=== PATIENT | male | born 1980 | race Caucasian/White ===

== ENCOUNTER 2016-11-17 22:25 | Emergency (ER) | payer OTHER ==
--- NOTE | ~2016-11-17 | CR72 ---
[facility] A Service of [facility] & [facility] RADIOLOGY TEXT RESULTS PATIENT: CARLOS MARTINI JR LOCATION: [facility] : 78 UNIT #: [id number] AGE: [address]: Enoch Fonseca MD SEX: M ORDER DR: [id number] [facility] [address] [place], [place] [address] [id number] E MR#: [id number] #: [id number] NAME: CARLOS MARTINI JR : 1980 SEX: M STUDY DATE/TIME: 11/17/2016 21:56 UNIT: [facility] ROOM: STUDY DESCRIPTION: CR Chest Single View Portable Attending Physician: Ye Fonseca M.D. Ordering Physician: Ye Fonseca M.D. Primary Care Physician: aLmont [place] Jr., A.P.R.N. MEDICAL IMAGING REPORT This report is preliminary unless electronic signature is present EXAM Portable chest HISTORY Right-side chest pain for 1 week. No injury. FINDINGS A single AP portable view of the chest shows both lungs to be clear. The heart is normal in size. The mediastinal contour is normal. No significant bone abnormalities are seen. IMPRESSION Normal portable chest. Dictated by... Yuniel Bhakta M.D. THIS IS AN ELECTRONICALLY VERIFIED REPORT Yuniel Bhakta M.D. at 11/18/2016 3:17 PM BERENICE/saige TD: 11/18/2016 08:43 JOB #: [id number] MEDICAL IMAGING REPORT COPY
--- NOTE | ~2016-11-17 | EKG ---
PATIENT: CARLOS MARTINI UNIT #: [id number] Ventricular Rate: 113 BPM Atrial Rate: 113 BPM P-R Interval: 144 ms QRS Duration: 80 ms Q-T Interval: 332 ms QTC Calculation(Bezet): 455 ms P [place]: 55 degrees Calculated R [place]: 25 degrees Calculated T [place]: 44 degrees Diagnosis Line: Sinus tachycardia Diagnosis Line: Otherwise normal ECG Diagnosis Line: When compared with ECG of 08-NOV-2016 23:51, Diagnosis Line: Nonspecific T wave abnormality no longer evident Diagnosis Line: in Lateral leads Diagnosis Line: Confirmed by RICHARD ESCOTO MD ([id number]) on Diagnosis Line: 11/19/2016 11:44:32 AM INTERPRETING MD: VINICIUS
[2016-11-17 22:19] LABS: BASOPHIL# 0.1 X10e3 (0-0.3); BASOPHIL% 0.8 % (0-2.5); EOSINOPHIL# 0.2 X10e3 (0-0.7); EOSINOPHIL% 0.9 % (0.0-7.0); HEMATOCRIT 42.7 % (38.0-50.0); HEMOGLOBIN 14.2 gm/dL (13.0-16.0); LYMPHOCYTE# 3.7 X10e3 (1.0-3.5); MEAN CELL VOLUME 90.3 FL (83-96); MEAN CORPUSCULAR HGB CONC 33.3 g/dL (30-36); MEAN PLATELET VOLUME 6.7 FL (6.5-11.5); MONOCYTE# 1.1 X10e3 (0-1.0); MONOCYTE% 6.4 % (3.0-12.0); NEUTROPHIL# 12.4 X10e3 (1.5-7.1); NEUTROPHIL% 70.9 % (40-75); PLATELET COUNT 427 X10e3 (140-420); RED BLOOD COUNT 4.73 X10e (3.90-5.60); RED CELL DISTRIBUTION WIDTH 14.2 % (11.0-15.5); WHITE BLOOD COUNT 17.5 X10e3 (4.0-10.5)
[2016-11-17 22:20] LABS: DIFF IND YES
[2016-11-17 22:24] LABS: POC - CKMB <1.0 ng/mL (0.0-7.9); POC - TROPONIN <0.05 ng/mL (<=0.05)
[~2016-11-17 22:25] MED LIST: ADVAIR; ADVAIR 1001 DISK W/D PO; ADVAIR INH; ALBUTEROL MININEB NEB; ALBUTEROL0.83 MG/ML INH; ALBUTEROL17 G2; ALBUTEROL17 GM; ALBUTEROL17 GM INH; ALBUTEROL20 ml INH; ALLEGRA PO; AMOXICILLIN PO; BACTRIM DS TABL1 TA1 PO; BACTRIM DS TABL1 TAB PO; BENTYL10 M1 PO; CIPROFLOXACIN2.5 ML; CLARITIN10 M2 PO; CLEOCIN; CLEOCIN150 M2 PO; CLEOCIN150 MG PO; CORTISPORI10 ML OTIC AD; DOXYCYCLINE HY100 M3 PO; FISH OIL 1,0001 CAP PO; FLEXERIL10 MG PO; GUAIFENESIN600 MG PO; IBUPROFEN800 MG PO; KEFLEX PO; KEFLEX500 M1 PO; KEFLEX500 MG PO; LEVAQUIN; LEVAQUIN750 MG PO; LIPITOR PO; LISINOPRIL; LISINOPRIL PO; LISINOPRIL20 MG PO; LORCET HD CAPSU1 CA1 PO; LORTAB 101 TAB 10/5 PO; LORTAB 5/500 TA1 TA1 PO; LORTAB 7.5-5001 TAB PO; MEDROL PO; METHOCARBAMOL500 MG PO; MOBIC PO; NAPROXEN PO; NEURONTIN800 MG PO; NO MEDICATIONS; NORCO 5/325 TAB1 TAB PO; NORCO1 TAB 10/3 PO; NYSTATIN5 ML PO; OMEPRAZOLE10 M1 PO; OMEPRAZOLE20 M2 PO; PERCOCET PO; PHENERGAN SUPP25 M1 PR; PREDNISONE PO; PREDNISONE10 MG/DOSE PO; PRILOSEC20 M1 PO; PYRIDIUM PO; SUBOXONE 8 MG-1 EAC1 SL; TYLOX 5/500 CAP1 CAP PO; ULTRAM PO; VIBRAMYCIN100 M1 PO; VICODIN 5/1 TAB 5/50 PO; VICODIN 5/500 T1 TAB PO; VISTARIL50 MG PO; ZITHROMAX PO; ZYRTEC10 M1; [UNRECOGNIZED DRUG - OTHER]
[2016-11-17 22:32] LABS: ANISOCYTOSIS SL; PLATELET ESTIMATE INCREASED (NORMAL)
[2016-11-17 22:41] LABS: ALBUMIN SERUM 4.2 g/dL (3.5-5.0); ALKALINE PHOSPHATASE 71 U/L (32-92); ALT (SGPT) 33 U/L (10-40); AST (SGOT) 18 U/L (10-42); BILIRUBIN, DIRECT 0.1 mg/dL (0.0-0.2); BILIRUBIN,INDIRECT 0.5 mg/dL (0.0-0.9); BILIRUBIN,TOTAL 0.6 mg/dL (0.2-2.0); BLOOD UREA NITROGEN 16 mg/dL (9-23); BUN/CREATININE RATIO 17.77; CALCIUM SERUM 8.8 mg/dL (8.4-10.2); CARBON DIOXIDE 25 mmol/L (22-31); CHLORIDE 98 mmol/L (100-111); CREATININE SERUM 0.9 mg/dL (0.6-1.4); GLOM FILT RATE Estimated ABOVE60 mL/min (>60); GLUCOSE FASTING 159 mg/dL (70-110); POTASSIUM 4.4 mmol/L (3.5-5.1); PROTEIN TOTAL SERUM 7.2 g/dL (6.0-8.3); SODIUM 134 mmol/L (135-145)
[2016-11-17 23:34] LABS: POC - CKMB <1.0 ng/mL (0.0-7.9); POC - TROPONIN <0.05 ng/mL (<=0.05)
== END 2016-11-18 01:20 | disposition home or self-care (01) ==
LOC: CED 22:25
PROVIDERS: Emergency Medicine; Student in an Organized Health Care Education/Training Program
DX: R07.89 Other chest pain (principal); J45.909 Unspecified asthma, uncomplicated; F17.210 Nicotine dependence, cigarettes, uncomplicated; Z79.899 Other long term (current) drug therapy
CPT/HCPCS: 36415; 71010; 80048; 80076; 82553; 84484; 85025; 93005; 99284

== ENCOUNTER 2017-02-21 19:43 | Emergency (ER) | payer OTHER ==
[2017-02-21 20:50] LABS: BASOPHIL# 0.3 X10e3 (0-0.3); BASOPHIL% 1.4 % (0-2.5); EOSINOPHIL# 0.6 X10e3 (0-0.7); EOSINOPHIL% 2.9 % (0.0-7.0); HEMOGLOBIN 14.6 gm/dL (13.0-16.0); LYMPHOCYTE# 5.3 X10e3 (1.0-3.5); LYMPHOCYTE% 27.3 % (17.0-45.0); MEAN CORPUSCULAR HEMOGLOBIN 29.8 PG (28-34); MEAN CORPUSCULAR HGB CONC 33.9 g/dL (30-36); MEAN PLATELET VOLUME 6.1 FL (6.5-11.5); MONOCYTE# 1.1 X10e3 (0-1.0); MONOCYTE% 5.5 % (3.0-12.0); NEUTROPHIL# 12.2 X10e3 (1.5-7.1); NEUTROPHIL% 62.9 % (40-75); PLATELET COUNT 475 X10e3 (140-420); RED BLOOD COUNT 4.88 X10e (3.90-5.60); RED CELL DISTRIBUTION WIDTH 13.4 % (11.0-15.5); WHITE BLOOD COUNT 19.3 X10e3 (4.0-10.5)
[2017-02-21 20:53] LABS: DIFF IND YES
[2017-02-21 21:08] LABS: ALBUMIN SERUM 4.2 g/dL (3.5-5.0); BILIRUBIN, DIRECT 0.1 mg/dL (0.0-0.2); BILIRUBIN,INDIRECT 0.3 mg/dL (0.0-0.9); BILIRUBIN,TOTAL 0.4 mg/dL (0.2-2.0); BUN/CREATININE RATIO 16.66; CALCIUM SERUM 8.7 mg/dL (8.4-10.2); CREATININE SERUM 0.9 mg/dL (0.6-1.4); GLOM FILT RATE Estimated 108.7 mL/min (>60); POTASSIUM 3.6 mmol/L (3.5-5.1); PROTEIN TOTAL SERUM 7.5 g/dL (6.0-8.3)
[2017-02-21 21:10] LABS: PLATELET ESTIMATE INCREASED (NORMAL); RBC NORMAL YES
== END 2017-02-21 23:30 | disposition home or self-care (01) ==
LOC: CED 19:43
DX: L02.214 Cutaneous abscess of groin (principal); J44.9 Chronic obstructive pulmonary disease, unspecified; F17.200 Nicotine dependence, unspecified, uncomplicated; Z88.8 Allergy status to other drugs, medicaments and biological substances; Z98.890 Other specified postprocedural states
CPT/HCPCS: 36415; 80048; 80076; 82150; 83690; 85025; 99283